=== PATIENT | female | born 1930 | race Caucasian/White ===

== ENCOUNTER 2019-08-08 09:17 | Day surgery (SDC) | payer MEDICARE ==
[~2019-08-08] VITALS: Ht 167.6 cm; Wt 70.1 kg
[2019-08-08] VITALS (11 sets, daily range): BP systolic 120–165; BP diastolic 41–98
[2019-08-08] MEDS ORDERED: normal saline 1,000 ML IV SCH (10:00)
[2019-08-08] MEDS ORDERED: diphenhydrAMINE 25mg capsule PO PRN (10:00)
[2019-08-08 10:35] LABS: BASOPHILS # (AUTO) 0.1 X10'3 (0-0.2); BASOPHILS % (AUTO) 1.1 % (0-1); EOSINOPHILS # (AUTO) 0.1 X10'3 (0-0.9); EOSINOPHILS % (AUTO) 2.1 % (0-6); HEMATOCRIT 42.7 % (35.0-45.0); HEMOGLOBIN 14.6 g/dl (12.0-16.0); LYMPHOCYTES % (AUTO) 14.1 % (21-51); MEAN CORPUSCULAR HEMOGLOBIN 32.5 PG (27.0-31.0); MEAN CORPUSCULAR HGB CONC 34.1 g/dL (33.0-36.5); MEAN CORPUSCULAR VOLUME 95.3 FL (78-98); MEAN PLATELET VOLUME 8.8 FL (7.4-10.4); MONOCYTES # (AUTO) 0.5 X10'3 (0-0.9); MONOCYTES % (AUTO) 7.1 % (2-12); NEUTROPHILS # (AUTO) 5.2 X10'3 (1.8-7.7); NEUTROPHILS % (AUTO) 75.6 % (42-75); PLATELET COUNT 225 X10'3 (140-440); RED BLOOD COUNT 4.48 X10'6 (4.20-5.60); RED CELL DISTRIBUTION WIDTH 13.3 % (11.5-14.5); WHITE BLOOD COUNT 6.9 X10'3 (4.5-11.0)
[2019-08-08 10:38] LABS: ANION GAP 9 (8-16); BLOOD UREA NITROGEN 10 MG/DL (7-18); BUN/CREATININE RATIO 17.2 (6.6-38.0); CALCIUM 9.8 MG/DL (8.5-10.1); CHLORIDE 108 MMOL/L (99-107); CREATININE 0.58 MG/DL (0.40-0.90); GLUCOSE 97 MG/DL (70-104); MAGNESIUM 1.9 MG/DL (1.5-2.4); POTASSIUM 3.8 MMOL/L (3.5-5.1); SODIUM 144 MMOL/L (135-145); TOTAL CARBON DIOXIDE 27.3 MMOL/L (24-32); eGFR > 90 ML/MIN
[2019-08-08] MEDS ORDERED: ASPI-611 PO (11:09)
[2019-08-08] MEDS ORDERED: UBID100C16 PO (11:09)
[2019-08-08] MEDS ORDERED: SPIR25TA5 PO (11:09)
[2019-08-08] MEDS ORDERED: LEVO100T PO (11:09)
[2019-08-08] MEDS ORDERED: PER10325T PO (11:09)
[2019-08-08] MEDS ORDERED: SOLI5TAB2 PO (11:09)
[2019-08-08] MEDS ORDERED: ROSU5TAB PO (11:09)
[2019-08-08] MEDS ORDERED: SULF500T9 PO (11:09)
[2019-08-08] MEDS ORDERED: METF-436 PO (11:09)
[2019-08-08] MEDS ORDERED: RANI-648 PO (11:09)
[2019-08-08] MEDS ORDERED: ISOS30TA6 PO (11:09)
[2019-08-08] MEDS ORDERED: POTA10TA19 PO (11:09)
[2019-08-08] MEDS ORDERED: SITA25TA3 PO (11:09)
[2019-08-08] MEDS ORDERED: SOTA120T9 PO (11:09)
[2019-08-08] MEDS ORDERED: fentaNYL/PF 50MCG/1 ML 2ML syringe ONE (13:34)
[2019-08-08] MEDS ORDERED: midazolam 2 mg/2 ml injection ONE ×2 (13:34→14:01)
[2019-08-08] MEDS ORDERED: LIDOcaine 1% W/epiNEPHrine 1:100,000 20ml vial ONE (13:34)
[2019-08-08] MEDS ORDERED: iohexol 350MG/ML 100ml bottle IV ONE (13:35)
[2019-08-08] MEDS ORDERED: iohexol 350 MG/ML 50ML vial IV ONE (13:35)
== END 2019-08-08 18:00 | disposition home or self-care (01) ==
LOC: SSTAY O 09:17
PROVIDERS: ATTEND Internal Medicine Cardiovascular Disease
DX: R94.39 Abnormal result of other cardiovascular function study (principal); R07.9 Chest pain, unspecified; Z79.899 Other long term (current) drug therapy
CPT/HCPCS: 36415; 80048; 83735; 85025; 85610; 93005; 93458; 99152; C1769; C1894; J1644; J2250; J3010; J7030; Q0163; Q9967; 99153; A4620; A6258; C1760